=== PATIENT | female | born 1995 | race Caucasian/White ===

== ENCOUNTER 2021-03-05 00:56 | Emergency (ER) | payer OTHER ==
[~2021-03-05] VITALS: Ht 160 cm; Wt 42.3 kg
[2021-03-05] MEDS ORDERED: CLON-592 PO (01:06)
[2021-03-05] MEDS ORDERED: LITH300T29 PO (01:06)
[2021-03-05] MEDS ORDERED: LAMO100 PO (01:06)
[2021-03-05] MEDS ORDERED: MAALOX/LIDOCAINE/NYSTATIN SUSP 5 ML ORAL.SYG PO ONE (01:45)
[2021-03-05] MEDS ORDERED: KETOROLAC TROMETHAMINE 10 MG TABLET PO ONE (02:00)
[2021-03-05 02:47] VITALS: BP 116/68
== END 2021-03-05 02:56 | disposition home or self-care (01) ==
LOC: EMS 00:59
DX: M26.603 Bilateral temporomandibular joint disorder, unspecified (principal); J02.9 Acute pharyngitis, unspecified; F31.9 Bipolar disorder, unspecified; Z79.899 Other long term (current) drug therapy
CPT/HCPCS: 99283